=== PATIENT | male | born 1980 | race Caucasian/White ===

== ENCOUNTER 2017-11-15 00:10 | Emergency (ER) | payer OTHER ==
[2017-11-15 01:33] LABS: CHLORIDE,CL 104 mmol/L (98-107); SODIUM,NA 142 mmol/L (136-145)
[2017-11-15 01:48] VITALS: BP 128/82
--- NOTE | 2017-11-15 17:31 | EDM.PDOC ---
ED HPI GENERAL MEDICAL PROBLEM - General Chief Complaint: Chest Pain Stated Complaint: Chest/back pain Time Seen by Provider: 11/15/17 00:25 Source of Information: Reports: Patient History Limitations: Reports: No Limitations - History of Present Illness INITIAL COMMENTS - FREE TEXT/NARRATIVE: PtMargaret presents to the ER with chest pain. He states that the discomfort started tonight and woke him from his sleep. He denies any fever or chills. No recent illnesses. He states that the discomfort is worse with movement and deep breathing. He denies any nausea or vomiting. He states that the discomfort doesn't radiate into his jaw, arms, neck or back. 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 Mid sternal chest/back Pain Score (Numeric/FACES): 2 - Related Data Allergies Allergy/AdvReac Type Severity Reaction Status Date / Time Penicillins Allergy Rash Verified 11/15/17 01:43 Home Meds: Home Meds Loratadine [Claritin] 10 mg PO BID PRN 07/01/14 [History] diphenhydrAMINE [Benadryl] 50 mg PO TID PRN 07/01/14 [History] Past Medical History - Past Health History Medical/Surgical History: Denies Medical/Surgical History Dermatologic History: Reports: Other (See Below) Other Dermatologic History: Hives. ED ROS GENERAL - Review of Systems Review Of Systems: See Below Constitutional: Reports: No Symptoms HEENT: Reports: No Symptoms Respiratory: Reports: Pleuritic Chest Pain Cardiovascular: Reports: No Symptoms Endocrine: Reports: No Symptoms GI/Abdominal: Reports: No Symptoms : Reports: No Symptoms Musculoskeletal: Reports: Back Pain, Other (chest and back pain) Skin: Reports: No Symptoms Neurological: Reports: No Symptoms Psychiatric: Reports: No Symptoms Hematologic/Lymphatic: Reports: No Symptoms Immunologic: Reports: No Symptoms ED EXAM, GENERAL - Physical Exam Exam: See Below Exam Limited By: No Limitations General Appearance: Alert, WD/WN, No Apparent Distress Ears: Normal External Exam, Normal Canal, Hearing Grossly Normal, Normal TMs Ear Exam: Bilateral Ear: Auricle Normal, Canal Normal, TM normal Nose: Normal Inspection, Normal Mucosa, No Blood Throat/Mouth: Normal Inspection, Normal Lips, Normal Teeth, Normal Gums, Normal Oropharynx, Normal Voice, No Airway Compromise Head: Atraumatic, Normocephalic Neck: Normal Inspection, Supple, Non-Tender, Full Range of Motion Respiratory/Chest: No Respiratory Distress, Lungs Clear, Normal Breath Sounds, No Accessory Muscle Use, Chest Non-Tender Cardiovascular: Normal Peripheral Pulses, Regular Rate, Rhythm, No Edema, No Gallop, No JVD, No Murmur, No Rub Peripheral Pulses: 4+: Radial (L), Radial (R) GI/Abdominal: Normal Bowel Sounds, Soft, Non-Tender, No Organomegaly, No Distention, No Abnormal Bruit, No Mass (Male) Exam: Deferred Rectal (Males) Exam: Deferred Back Exam: Normal Inspection, Full Range of Motion, NT Extremities: Normal Inspection, Normal Range of Motion, Non-Tender, Normal Capillary Refill, No Pedal Edema Neurological: Alert, Oriented, CN II-XII Intact, Normal Cognition, Normal Gait, Normal Reflexes, No Motor/Sensory Deficits Psychiatric: Normal Affect, Normal Mood Skin Exam: Warm, Dry, Intact, Normal Color, No Rash Lymphatic: No Adenopathy Course - Vital Signs Last Recorded V/S: Last Vital Signs Temp 36.6 C 11/15/17 00:10 Pulse 63 11/15/17 01:47 Resp 16 11/15/17 01:47 BP 128/82 11/15/17 01:47 Pulse Ox 98 11/15/17 01:47 - Orders/Labs/Meds Orders: Active Orders 24 hr Category Date Time Status EKG Documentation Completion [RC] STAT Care 11/15/17 00:35 Active Chest 2V [CR] Stat Exams 11/15/17 00:35 Taken Labs: Laboratory Tests 11/15/17 11/15/17 11/15/17 Range/Units 01:01 01:01 01:01 WBC 11.9 H (4.0-10.0) x10^3/uL RBC 5.48 (4.5-6.0) x10^6/uL Hgb 16.4 (14.0-18.0) g/dL Hct 47.6 (40.0-52.0) % MCV 86.9 (78.0-93.0) fL MCH 29.9 (26.0-32.0) pg MCHC 34.5 (32.0-36.0) g/dL RDW Coeff of John 13.8 (10.0-15.0) % Plt Count 222 (130-400) x10^3/uL Neut % (Auto) 57.8 (50.0-80.0) % Lymph % (Auto) 34.0 (25.0-50.0) % [place] % (Auto) 6.9 (2.0-11.0) % Eos % (Auto) 1.1 (0.0-4.0) % Baso % (Auto) 0.2 (0.2-1.2) % PT 10.3 (9.6-11.4) SEC INR 1.0 L (2.0-3.5) D-Dimer, Quantitative < 0.19 (<=0.58) mg/LFEU Sodium 142 (136-145) mmol/L Potassium 3.9 (3.5-5.1) mmol/L Chloride 104 (98-107) mmol/L Carbon Dioxide 26 (21-32) mmol/L Anion Gap 15.9 (10-20) mmol/L BUN 11 (7-18) mg/dL Creatinine 0.9 (0.70-1.30) mg/dL Est Cr Clr Drug Dosing TNP Estimated GFR (MDRD) > 60 Glucose 95 (74-106) mg/dL Calcium 8.8 (8.5-10.1) mg/dL Corrected Calcium 8.88 (8.5-10.1) mg/dL Total Bilirubin 0.5 (0.2-1.0) mg/dL AST 26 (15-37) U/L ALT 46 (16-63) U/L Alkaline Phosphatase 93 (46-116) U/L POC Troponin I (0.00-0.08) ng/mL Total Protein 7.6 (6.4-8.2) g/dL Albumin 3.9 (3.4-5.0) g/dL Globulin 3.7 Albumin/Globulin Ratio 1.05 //18 Range/Units 01:06 WBC (4.0-10.0) x10^3/uL RBC (4.5-6.0) x10^6/uL Hgb (14.0-18.0) g/dL Hct (40.0-52.0) % MCV (78.0-93.0) fL MCH (26.0-32.0) pg MCHC (32.0-36.0) g/dL RDW Coeff of John (10.0-15.0) % Plt Count (130-400) x10^3/uL Neut % (Auto) (50.0-80.0) % Lymph % (Auto) (25.0-50.0) % [place] % (Auto) (2.0-11.0) % Eos % (Auto) (0.0-4.0) % Baso % (Auto) (0.2-1.2) % PT (9.6-11.4) SEC INR (2.0-3.5) D-Dimer, Quantitative (<=0.58) mg/LFEU Sodium (136-145) mmol/L Potassium (3.5-5.1) mmol/L Chloride (98-107) mmol/L Carbon Dioxide (21-32) mmol/L Anion Gap (10-20) mmol/L BUN (7-18) mg/dL Creatinine (0.70-1.30) mg/dL Est Cr Clr Drug Dosing Estimated GFR (MDRD) Glucose (74-106) mg/dL Calcium (8.5-10.1) mg/dL Corrected Calcium (8.5-10.1) mg/dL Total Bilirubin (0.2-1.0) mg/dL AST (15-37) U/L ALT (16-63) U/L Alkaline Phosphatase (46-116) U/L POC Troponin I 0.00 (0.00-0.08) ng/mL Total Protein (6.4-8.2) g/dL Albumin (3.4-5.0) g/dL Globulin Albumin/Globulin Ratio Departure - Departure Time of Disposition: 02:06 Disposition: Home, Self-Care 01 Clinical Impression: Atypical chest pain - Discharge Information Instructions: Atelectasis, Adult, Nonspecific Chest Pain, [id number] Referrals: PCP,Unobtain [Primary Care Provider] - Forms: ED Department Discharge Additional Instructions: Home to rest. Work on deep breathing. Follow-up in clinic in 10-14 days for recheck. - My Orders Last 24 Hours: My Active Orders 11/15/17 00:35 EKG Documentation Completion [RC] STAT Chest 2V [CR] Stat - Assessment/Plan Last 24 Hours: My Active Orders 11/15/17 00:35 EKG Documentation Completion [RC] STAT Chest 2V [CR] Stat Plan: Follow up with PCP. Return to ER if worsening discomfort, shortness of breath, or weakness.
== END 2017-11-15 02:06 | disposition home or self-care (01) ==
LOC: VM.ED 00:12
DX: R07.89 Other chest pain (principal); Z88.0 Allergy status to penicillin
CPT/HCPCS: 36415; 71046; 80053; 84484; 85025; 85379; 85610; 93005; 99284

== ENCOUNTER 2021-03-29 23:50 | Emergency (ER) | payer OTHER ==
[2021-03-30 00:20] VITALS: PULSE 84
[2021-03-30] MEDS: Aspirin 81 MG Tab.Chew PO ONE (00:28)
[2021-03-30] MEDS: Diazepam 5 MG Tab PO ONE (00:30)
[2021-03-30] MEDS: Ketorolac 30 MG/ML SDV IM ONE (00:35)
--- NOTE | 2021-03-30 00:43 | EDM.PDOC ---
ED HPI GENERAL MEDICAL PROBLEM - General Chief Complaint: Chest Pain Stated Complaint: Left chest, shoulder, back pain Time Seen by Provider: 03/30/21 00:05 Source of Information: Reports: Patient - History of Present Illness INITIAL COMMENTS - FREE TEXT/NARRATIVE: New is a 40 y/o male who presents to the ER with complaints of midsternal chest pain. He has had the pain now for the last 8 days. He was seen last week in clinic by Curly PERSAUD and advised to use aspirin. He has been doing that, last dose was Sunday evening. He denies any injury, but the pain that was in the middle of his chest seemed to get worse and radiate into his left shoulder and midback region. Despite his PCP telling him it was a cartilage issue, he got very anxious tonight and concerned that it was cardiac in nature. No sweating. No nausea. Denies any cardiac issues in the past. Treatments UNDERWEAR FINISHER: Reports: Other (see below) Other Treatments UNDERWEAR FINISHER: Ibuprofen left upper chest Pain Score (Numeric/FACES): 3 - Related Data Allergies Allergy/AdvReac Type Severity Reaction Status Date / Time Penicillins Allergy Rash Verified 11/15/17 01:43 Home Meds: Home Meds Loratadine [Claritin] 10 mg PO BID PRN 07/01/14 [History] diphenhydrAMINE [Benadryl] 50 mg PO TID PRN 07/01/14 [History] Cyclobenzaprine [Flexeril] 10 mg PO TID PRN #15 tab 03/30/21 [Rx] methylPREDNISolone [Medrol Dose Pack] 4 mg PO DAILY 7 Days #21 dospk 03/30/21 [Rx] Past Medical History - Past Health History Medical/Surgical History: Denies Medical/Surgical History Dermatologic History: Reports: Other (See Below) Other Dermatologic History: Hives. Review of Systems - Review of Systems Review Of Systems: See Below Constitutional: Reports: No Symptoms Eyes: Reports: No Symptoms Ears: Reports: No Symptoms Nose: Reports: No Symptoms Mouth/Throat: Reports: No Symptoms Respiratory: Reports: No Symptoms Cardiovascular: Reports: Chest Pain GI/Abdominal: Reports: No Symptoms Genitourinary: Reports: No Symptoms Musculoskeletal: Reports: Shoulder Pain (left) Skin: Reports: No Symptoms Neurological: Reports: No Symptoms Psychiatric: Reports: No Symptoms ED EXAM, GENERAL - Physical Exam Exam: See Below General Appearance: Alert, WD/WN, No Apparent Distress (Adult male) Ears: Hearing Grossly Normal Nose: Normal Inspection Throat/Mouth: Normal Inspection, Normal Lips, Normal Voice Head: Atraumatic, Normocephalic Neck: Supple Respiratory/Chest: No Respiratory Distress, Lungs Clear, Other (positive point tenderness in the midsternal region ) Cardiovascular: Normal Peripheral Pulses, Regular Rate, Rhythm, No Murmur GI/Abdominal: Normal Bowel Sounds, Soft, Non-Tender (Male) Exam: Deferred Rectal (Males) Exam: Deferred Back Exam: Normal Inspection, Full Range of Motion Extremities: Normal Inspection, Normal Range of Motion, No Pedal Edema, Normal Capillary Refill Neurological: Alert, Oriented, CN II-XII Intact, Normal Cognition, Normal Gait, No Motor/Sensory Deficits #1 Interpretation EKG Date: 03/30/21 Time: 23:40 Rhythm: NSR Rate (Beats/Min): 70 [place]: Normal P-Wave: Present QRS: Normal ST-T: Normal QT: Normal EKG Interpretation Comments: NSR Course - Vital Signs Text/Narrative:: 0005 The patient was seen by the C [employer] SUPERVISOR. Labs and EKG done. He was given ASA 324mg po x 1 dose. Doubt ACS, but will rule out with Troponin. Suspect musculoskeletal pain. Toradol 30mg IM and Valium 10mg po given. 0045 Pain improved. 0050 Labs reviewed, Troponin negative. Doubt cardiac etiology. Will send home with muscle relaxers and comfort measures. Also will prescribe a steroid since he has been having sx greater than a week now. Written instructions were given and he left the ER in stable condition. Last Recorded V/S: Last Vital Signs Temp 36.9 C 03/29/21 23:50 Pulse 84 03/29/21 23:50 Resp 16 03/29/21 23:50 BP 146/65 H 03/29/21 23:50 Pulse Ox 97 03/29/21 23:50 - Orders/Labs/Meds Orders: Active Orders 24 hr Category Date Time Status EKG Documentation Completion [RC] STAT Care 03/30/21 00:10 Active Labs: Laboratory Tests 03/30/21 03/30/21 03/30/21 Range/Units 00:23 00:23 00:23 WBC 11.5 H (4.0-10.0) x10^3/uL RBC 5.31 (4.5-6.0) x10^6/uL Hgb 15.4 (14.0-18.0) g/dL Hct 45.7 (40.0-52.0) % MCV 86.1 (78.0-93.0) fL MCH 29.0 (26.0-32.0) pg MCHC 33.7 (32.0-36.0) g/dL RDW Coeff of John 12.7 (10.0-15.0) % Plt Count 307 (130-400) x10^3/uL Immature Gran % (Auto) 0.10 (0.00-0.43) % Neut % (Auto) 56.4 (50.0-80.0) % Lymph % (Auto) 34.8 (25.0-50.0) % [place] % (Auto) 6.9 (2.0-11.0) % Eos % (Auto) 1.5 (0.0-4.0) % Baso % (Auto) 0.3 (0.2-1.2) % Neut # (Auto) 6.5 (1.8-7.7) x10^3/uL Lymph # (Auto) 4.0 (1.0-4.8) x10^3/uL [place] # (Auto) 0.8 (0.0-0.8) x10^3/uL Eos # (Auto) 0.2 (0.0-0.5) x10^3/uL Baso # (Auto) 0.0 (0.0-0.2) x10^3/uL Immature Gran # (Auto) 0.01 (0.00-0.07) x10^3/uL PT 10.5 (9.9-12.5) SEC INR 0.9 L (2.0-3.5) Sodium 142 (136-145) mmol/L Potassium 4.1 (3.5-5.1) mmol/L Chloride 104 (98-107) mmol/L Carbon Dioxide 27 (21-32) mmol/L Anion Gap 15.1 H (5-15) mmol/L BUN 17 (7-18) mg/dL Creatinine 0.9 (0.70-1.30) mg/dL Est Cr Clr Drug Dosing 140.25 mL/min Estimated GFR (MDRD) > 60 Glucose 107 H (70-99) mg/dL Calcium 8.9 (8.5-10.1) mg/dL Corrected Calcium 8.8 (8.5-10.1) mg/dL Magnesium 2.2 (1.8-2.4) mg/dL Total Bilirubin 0.3 (0.2-1.0) mg/dL AST 25 (15-37) U/L ALT 45 (16-63) U/L Alkaline Phosphatase 88 (46-116) U/L Troponin I High Sens < 4 (<=76) ng/L C-Reactive Protein < 0.2 (<=0.9) mg/dL Total Protein 7.2 (6.4-8.2) g/dL Albumin 4.1 (3.4-5.0) g/dL Globulin 3.1 Albumin/Globulin Ratio 1.32 Amylase 27 (25-115) U/L Lipase 110 (73-393) U/L Meds: Medications Discontinued Medications Generic Name Dose Route Start Last Admin Trade Name Freq PRN Reason Stop Dose Admin Aspirin 324 mg 03/30/21 00:11 03/30/21 00:28 Aspirin 81 Mg Tab.Chew PO 03/30/21 00:12 324 mg ONETIME ONE Administration Diazepam 10 mg 03/30/21 00:11 03/30/21 00:30 Diazepam 5 Mg Tab PO 03/30/21 00:12 10 mg ONETIME ONE Administration Ketorolac Tromethamine 30 mg 03/30/21 00:11 03/30/21 00:35 Ketorolac 30 Mg/Ml Sdv IM 03/30/21 00:12 30 mg ONETIME ONE Administration Departure - Departure Time of Disposition: 00:53 Disposition: Home, Self-Care 01 Clinical Impression: Musculoskeletal chest pain - Discharge Information *PRESCRIPTION DRUG MONITORING PROGRAM REVIEWED*: Not Applicable *COPY OF PRESCRIPTION DRUG MONITORING REPORT IN PATIENT KASEY: Not Applicable Prescriptions: Cyclobenzaprine [Flexeril] 10 mg PO TID PRN #15 tab PRN Reason: Muscle Spasm - Painful methylPREDNISolone [Medrol Dose Pack] 4 mg PO DAILY 7 Days #21 dospk Instructions: Chest Wall Pain Forms: ED Department Discharge Additional Instructions: -Ibuprofen 200mg 3 tabs orally every 6 hours x 5-7 days then every 6-8 hours as needed (Use over the counter meds) -Cyclobenzaprine 10 mg orally every 8 hours as needed for muscle spasms #15 (Rx) -Medrol Dose Pack 4mg oral as directed #21(Rx) -Ice or heat applied to the area as needed -Rest, Increase activity as able -Follow up with your Primary Care Provider to arrange further diagnostic testing if the pain persists -Return to the ER if any other concerns Sepsis Event Note (ED) - Evaluation Sepsis Screening Result: No Definite Risk - Focused Exam Vital Signs: Vital Signs Temp Pulse Resp BP Pulse Ox 03/29/21 23:50 36.9 C 84 16 146/65 H 97 - Problem List & Annotations (1) Musculoskeletal chest pain SNOMED Code(s): 061681913 Code(s): R07.89 - OTHER CHEST PAIN Status: Acute Annotation/Comment:: Send home with NSAIDs, muscle relaxers, & steroids. Comfort measures reviewed. (2) Atypical chest pain SNOMED Code(s): 643006851 Code(s): R07.89 - OTHER CHEST PAIN Status: Acute - Problem List Review Problem List Initiated/Reviewed/Updated: Yes - My Orders Last 24 Hours: My Active Orders 03/30/21 00:10 EKG Documentation Completion [RC] STAT - Assessment/Plan Last 24 Hours: My Active Orders 03/30/21 00:10 EKG Documentation Completion [RC] STAT Plan: As above
[2021-03-30 00:47] LABS: CHLORIDE,CL 104 mmol/L (98-107); SODIUM,NA 142 mmol/L (136-145)
[2021-03-30 00:49] LABS: ANION GAP 15.1 mmol/L (5-15)
[2021-03-30 06:20] VITALS: BP 134/84
== END 2021-03-30 01:10 | disposition home or self-care (01) ==
LOC: VM.ED 23:50
DX: R07.89 Other chest pain (principal); R07.2 Precordial pain; Z88.0 Allergy status to penicillin
CPT/HCPCS: 36415; 80053; 82150; 83690; 83735; 84484; 85025; 85610; 86140; 93005; 93010; 96372; 99284; 99285-25; A9270-GY; J1885

== ENCOUNTER 2022-05-10 23:19 | Emergency (ER) | payer OTHER ==
[2022-05-10] MEDS ORDERED: methylPREDNISolone Sodium Succinate 125 MG/2 ML SDV IVPUSH ONE (23:34)
[2022-05-11] MEDS ORDERED: EPINEPHrine 1 MG/1 ML Amp SUBCUT ONE (00:32)
[2022-05-11] MEDS ORDERED: Sodium Chloride 0.9% 1,000 ML IV ONE (00:47)
[2022-05-11] MEDS ORDERED: Take Home: predniSONE 20 MG, 2 Tab Pack PO ONE (00:59)
[2022-05-11 01:35] VITALS: BP 150/80
[2022-05-11 01:46] VITALS: PULSE 86
== END 2022-05-11 01:43 | disposition home or self-care (01) ==
LOC: VM.ED 23:19
DX: L50.0 Allergic urticaria (principal)
CPT/HCPCS: 96361; 96372; 96374; 99283; 99283-25; J0171; J2930; J7030; J7512